=== PATIENT | female | born 1955 | race Caucasian/White ===

== ENCOUNTER → 2019-07-24 08:48 | Outpatient (BNVA) | payer BC, SELFPAY | PROVIDERS: Family Provider Family Medicine; PCP Family Medicine; Visit Provider Family Medicine | DX: I10 Essential (primary) hypertension (principal); E11.9 Type 2 diabetes mellitus without complications; Z79.4 Long term (current) use of insulin; E78.5 Hyperlipidemia, unspecified; M10.9 Gout, unspecified | CPT/HCPCS: 80053; 80061; 83036; 84550; 85025 ==

== ENCOUNTER → 2019-10-21 08:16 | Outpatient (BNVA) | payer BC, SELFPAY | PROVIDERS: Family Provider Family Medicine; PCP Family Medicine; Visit Provider Family Medicine | DX: E11.22 Type 2 diabetes mellitus with diabetic chronic kidney disease (principal); N18.3 Chronic kidney disease, stage 3 (moderate) | CPT/HCPCS: 84550 ==

== ENCOUNTER → 2020-01-22 08:28 | Outpatient (BNVA) | payer BC, OTHER, SELFPAY | PROVIDERS: Family Provider Family Medicine; PCP Family Medicine; Visit Provider Family Medicine | DX: I10 Essential (primary) hypertension (principal); E78.2 Mixed hyperlipidemia; E11.9 Type 2 diabetes mellitus without complications; Z79.4 Long term (current) use of insulin; N18.3 Chronic kidney disease, stage 3 (moderate); M10.9 Gout, unspecified | CPT/HCPCS: 80053; 80061; 83036; 85025 ==

== ENCOUNTER → 2020-04-25 08:19 | Outpatient (BNVA) | payer BC, OTHER, SELFPAY | PROVIDERS: Family Provider Family Medicine; PCP Family Medicine; Visit Provider Family Medicine | DX: N18.30 Chronic kidney disease, stage 3 unspecified (principal); N20.0 Calculus of kidney | CPT/HCPCS: 80069; 82043; 82310; 83970; 84550; 85025 ==

== ENCOUNTER 2020-04-26 14:53 | Outpatient (CLI) | payer BC, OTHER, SELFPAY ==
--- NOTE | 2020-04-26 14:30 | XRR_ITS ---
PROCEDURE INFORMATION: Exam: XR Abdomen, 1 View Exam date and time: 04/26/2020 3:22 PM Age: 64 years old Clinical indication: Condition or disease; Kidney or ureter condition; Calculus (stone) in kidney; Prior surgery; Surgery date: 6+ months; Surgery type: Hysterectomy; Patient HX: Renal stones year follow up TECHNIQUE: Imaging protocol: XR of the abdomen. Views: Frontal supine view of the abdomen. 1 View. COMPARISON: CR XR KUB [id number] 04/21/2019 3:13 PM FINDINGS: Gastrointestinal tract: Heavy fecal residue suggesting constipation. Nonobstructive bowel pattern. Organs: No radiographically visible renal or ureterolithiasis. Please note that approximately 70% of renal in ureterolithiasis or not radiographically visible. Would recommend computed tomography for further evaluation. Bones/joints: Mild scoliotic curvature of the spine. Degenerative disease and facet arthrosis. XR/XR KUB [id number] IMPRESSION: 1. Nonacute. 2. No radiographically visible renal or ureterolithiasis this evaluation.
== END 2020-04-26 14:54 | disposition home or self-care (01) ==
LOC: RAD 15:01
PROVIDERS: PCP Family Medicine; Visit Provider Urology
DX: N20.0 Calculus of kidney (principal)
CPT/HCPCS: 74018; 81003

== ENCOUNTER → 2020-07-13 08:43 | Outpatient (BNVA) | payer MEDICARE, SELFPAY | PROVIDERS: PCP Family Medicine; Visit Provider Family Medicine | DX: I10 Essential (primary) hypertension (principal); E11.9 Type 2 diabetes mellitus without complications; Z79.4 Long term (current) use of insulin; M25.521 Pain in right elbow | CPT/HCPCS: 80053; 83036; 84550 ==

== ENCOUNTER → 2020-12-08 12:07 | Outpatient (BNVA) | payer MEDICARE, SELFPAY | PROVIDERS: PCP Family Medicine; Visit Provider Family Medicine | DX: Z00.00 Encounter for general adult medical examination without abnormal findings (principal); Z13.6 Encounter for screening for cardiovascular disorders; Z68.36 Body mass index [BMI] 36.0-36.9, adult; Z71.89 Other specified counseling | CPT/HCPCS: 80053; 80061; 83036; 85025 ==

== ENCOUNTER → 2021-06-05 16:12 | Outpatient (BNVA) | payer MEDICARE, SELFPAY | PROVIDERS: PCP Family Medicine; Visit Provider Nurse Practitioner Family | DX: Z20.822 Contact with and (suspected) exposure to COVID-19 (principal) | CPT/HCPCS: 87635 ==

== ENCOUNTER 2021-06-12 15:58 | Outpatient (CLI) | payer SELFPAY ==
[2021-06-12 08:50] VITALS: BMI 34.7
== END 2021-06-12 15:59 | disposition home or self-care (01) ==
LOC: OPS 16:00
PROVIDERS: PCP Family Medicine; Visit Provider Family Medicine
DX: U07.1 COVID-19 (principal)
CPT/HCPCS: 96365

== ENCOUNTER → 2021-09-05 15:11 | Outpatient (BNVA) | payer MEDICARE, SELFPAY | PROVIDERS: PCP Family Medicine; Visit Provider Family Medicine | DX: I10 Essential (primary) hypertension (principal); E11.9 Type 2 diabetes mellitus without complications; Z79.4 Long term (current) use of insulin; E78.2 Mixed hyperlipidemia; Z86.16 Personal history of COVID-19; Z68.35 Body mass index [BMI] 35.0-35.9, adult | CPT/HCPCS: 80053; 83036 ==

== ENCOUNTER → 2022-04-23 14:07 | Outpatient (BNVA) | payer MEDICARE, SELFPAY | PROVIDERS: PCP Family Medicine; Visit Provider Emergency Medicine | DX: R05.9 Cough, unspecified (principal); Z20.822 Contact with and (suspected) exposure to COVID-19 | CPT/HCPCS: 87400; 87426 ==

== ENCOUNTER 2025-03-17 14:41 | Outpatient (CLI) | payer MEDICARE, SELFPAY ==
--- NOTE | 2025-03-17 14:44 | XR_ITS ---
WS: [id number] DEXA (DUAL ENERGY X-RAY ABSORPTIOMETRY) Bone mineral density was performed using a [employer] machine. HISTORY: POST MENOPAUSAL COMPARISON: 02/27/2018 Lumbar spine BMD (L1-L4): 1.047 g/cm2 T score: -1.1 Z score: 0.1 Total hip BMD: Left: 0.949 g/cm2. T score: -0.5 Z score: 0.7 Right: 0.937 g/cm2. T score: -0.6 Z score: 0.6 10 year probability of a major osteoporotic fracture is 17.2%. Compared to the prior study from 02/27/2018. Lumbar spine bone mineral density has increased by 3.5%. Bilateral hips bone mineral density has decreased by 7.3%. XR/XR DEXA axial skeleton* [id number] IMPRESSION: OSTEOPENIA based upon the WHO classification for females. Significant increase in bone mineral density in the lumbar spine since the prio r study. Significant decrease in bone mineral density in the hips since the prior study.
== END 2025-03-17 14:42 | disposition home or self-care (01) ==
LOC: RAD 14:42
PROVIDERS: PCP Family Medicine; Visit Provider Electrodiagnostic Medicine
DX: Z13.820 Encounter for screening for osteoporosis (principal); Z78.0 Asymptomatic menopausal state; M85.88 Other specified disorders of bone density and structure, other site
CPT/HCPCS: 77080